=== PATIENT | male | born 1985 | race Caucasian/White ===

== ENCOUNTER → 2020-05-11 | Outpatient (CLI) | payer BC, OTHER ==
[~2020-05-11] MED LIST: ADVIL200 M1 PO; MULTI VITAMIN1 EACH PO; TYLENOL EXTRA500 MG PO
== END ==
LOC: RAD 12:51
DX: R29.890 Loss of height (principal)

== ENCOUNTER → 2020-06-02 | Outpatient (CLI) | payer BC, OTHER | LOC: EDSTATUS 13:22 → LAB 14:13 | PROVIDERS: ATTEND Student in an Organized Health Care Education/Training Program | DX: Z01.812 Encounter for preprocedural laboratory examination (principal); Z11.59 Encounter for screening for other viral diseases ==

== ENCOUNTER 2020-06-06 06:20 | Day surgery (SDC) | payer BC, OTHER ==
[2020-05-30 11:23] LABS: HEMATOCRIT 50.4 % (42.0-52.0); HEMOGLOBIN 17.2 gm/dL (14.0-18.0); MCH 32.2 pg (26.0-34.0); MCHC 34.2 g/dL (28.0-37.0); MCV 94.2 fL (80.0-100.0); PLATELET COUNT 262 thou/uL (150-400); RBC 5.35 mil/uL (4.50-6.00); RDW 12.9 % (10.5-14.5); WBC 8.1 thou/uL (4.0-11.0)
[2020-05-30 11:52] LABS: APTT 28.6 Seconds (24.5-32.8); PROTIME 10.1 Seconds (9.3-11.4)
[2020-05-30 11:56] LABS: URINE BILIRUBIN NEGATIVE (Negative); URINE BLOOD NEGATIVE (Negative); URINE CLARITY CLEAR; URINE COLOR YELLOW; URINE GLUCOSE-RANDOM* NEGATIVE (Negative); URINE KETONES NEGATIVE (Negative); URINE LEUKOCYTES-REFLEX NEGATIVE (Negative); URINE NITRITE-REFLEX NEGATIVE (Negative); URINE PROTEIN (DIPSTICK) NEGATIVE (Negative); URINE SPECIFIC GRAVITY >= 1.030 (1.005-1.035); URINE UROBILINOGEN 0.2 E.U./dl (0.2-1.0)
[2020-05-30 12:30] LABS: ALBUMIN 4.1 g/dL (3.4-5.0); CREATININE 0.8 mg/dL (0.7-1.3); TOTAL BILIRUBIN 0.4 mg/dL (0.2-1.0); TOTAL PROTEIN 8.1 g/dL (6.4-8.2)
[2020-05-30 15:06] LABS: ABSOLUTE NEUTROPHILS 2.5 thou/uL (1.4-8.2)
[2020-05-30 15:07] LABS: ANISOCYTOSIS 1+
--- NOTE | 2020-05-30 15:56 | EKG ---
[facility] [place] [address] ELECTROCARDIOGRAM REPORT Name: KEISHA BEASLEY Room #: PRE [facility] M..#: [id number] Admission: Attend Phys: Jack Wilkerson MD Discharge: Date of : 83 Report #: [id number] THIS REPORT FOR: cc: HIRA - Elvira family physician/PCP HIRA - Elvira family physician/PCP Henok King MD ~ THIS REPORT FOR: //name// [facility] Test Date: 2020-05-30 Test Time: 10:52:25 Pat Name: KEISHA BEASLEY Department: Room: Gender: Professor Of Psychology: [facility] : 1985 Requested By: Jack Wilkerson Order Number: [id number] MD: Henok King Measurements Intervals [place] Rate: 77 P: 43 NH: 143 QRS: 62 QRSD: 105 T: 51 QT: 377 QTc: 427 Interpretive Statements Sinus rhythm ST elev, probable normal early repol pattern No previous ECG available for comparison Electronically Signed On 05-30-2020 15:56:43 CDT by Henok King [email or web address] <ELECTRONICALLY SIGNED> By: Henok King MD 05/30/20 1556 1052 1052 Henok King MD /VIRGILIO
[~2020-06-06] VITALS: Ht 185.4 cm; Wt 147.4 kg
--- NOTE | ~2020-06-06 | O ---
[facility] [place] [address] OPERATIVE REPORT Name: KEISHA BEASLEY Room #: 433-I [facility] M..#: [id number] Admission: 06/06/20 Attend Phys: Jack Wilkerson MD Discharge: Date of : 83 Report #: [id number] THIS REPORT FOR: cc: HIRA - Elvira family physician/PCP HIRA - Elvira family physician/PCP Jack Wilkerson MD ~ CC: HIRA physician/PCP Jack Wilkerson DATE OF SERVICE: 06/06/2020 PREPROCEDURAL DIAGNOSES: Degenerative disk disease, herniated nucleus pulposus L5-S1, left S1 radiculopathy, osteodiscal complex and spinal stenosis. POSTPROCEDURAL DIAGNOSES: Degenerative disk disease, herniated nucleus pulposus L5-S1, left S1 radiculopathy, osteodiscal complex and spinal stenosis. PROCEDURE: The patient's procedure was originally to be herniated nucleus pulposus excision, but it turned out to be a laminectomy with partial facetectomy and neural foraminotomy on the left of L5, laminectomy with neural foraminotomy, partial facetectomy S1 on the left with an osteophyte excision beneath the rim of S1 nerve root and HNP excision and fluoroscopy. SURGEON: Jack Wilkerson MD CAD ADMINISTRATOR SURGEON: ____ ANESTHETIC: General via endotracheal tube. INDICATIONS: The patient has had left S1 radiculopathy. The patient proved refractory to all forms of multimodality conservative management. The patient understood the risks of surgery to be , DVT, pulmonary embolism, paraplegia, loss of use of the bowel or bladder, injury to the nerve root, dural leak, spinal headache, infection, loss of ability to ambulate, loss of bowel and bladder function, loss of sexual function, possibility of bleeding, bleeding requiring transfusion, ____ attendant risks of AIDS and hepatitis, infection, instability, the need for revision, prolonged hospital stay. DESCRIPTION OF PROCEDURE: The patient was brought to the operating room, administered general anesthesia via endotracheal tube. He was positioned on the Kervin table with all bony prominences padded appropriately. Care was taken to ensure the shoulder was not abducted more than 90 degrees, the elbows flexed more than 90 degrees. There was no undue pressure on the cubital or carpal canals. The area of the anterior superior iliac spine was well padded to protect the lateral femoral cutaneous nerve. Hips and knees were well padded. There was no pressure on the dorsum of the feet. The patient's low back was [address] [address] OPERATIVE REPORT Name: KEISHA BEASLEY Room #: 433-I [facility].#: [id number] Admission: 06/06/20 Attend Phys: Jack Wilkerson MD Discharge: Date of : 83 Report #: [id number] defatted with alcohol, visualized under fluoroscopy and the pedicles of L5 and S1 were marked on the patient's back for surgical reference. We then sterilely prepped and draped, infiltrated the skin with 0.5% Marcaine, 1:200,000 epinephrine. Sharp dissection was continued down through the skin and the subcutaneous tissues and again the fluoroscopy had marked the interspace and this required fluoroscopic exposure and interpretation. When centered over L5-S1, we were able to make the incision, carried it down through significant amounts of subcutaneous tissue. A complex ____ would be appropriate. It was approximately 8-9 inches from the skin to the deep fascial layer. We had to use the deep self-retaining retractors just to get down to the lumbodorsal fascia. We reached the lumbodorsal fascia and exposed just enough spinous process to prove that we were at the L5-S1 level. We then subperiosteally exposed the spinous process of L5 and S1 and again I attached a clamp to L5 and fluoroscopy was brought in for yet another fluoroscopic exposure that required surgeon interpretation and it was determined that we were at the L5 level. We cleared the L5-S1 interspace on the left and removed the fibrofatty tissue from the interlaminar space. Once the lamina of L5 and S1 was defined, we began by making a thinning laminotomy of the lamina of L5 and drilled to the anterior cortex. We then used a forward angle Luis Carlos curette to remove the ligamentum flavum from the undersurface of the lamina. We then were able to dissect laterally removing the ligamentum flavum after it had been detached from the cephalad portion of L5. With the ligament incised with a 15 blade cut over a [place] dental elevator, we then used the 3 mm Kerrison to resect additional ligamentum flavum. We eventually found the nerve root pushed far lateral beneath the contents of the L5-S1 disk. We were able with some difficulty to dissect the nerve root free from its lateral position and up over what seemed to be disk at the L5-S1 level. We incised the L5-S1 level and found almost the entire contents to be bone. Realizing that this was now a hard disk and it was as much or more bone than disk material, we had to extend the laminectomy of L5 cephalad to get good mobilization as the spur was enormous. We also had to dissect distally to free up the nerve root that looked contused from the start of the case. The nerve root was somewhat purplish. We then mobilized the nerve root, removed some disk material, but then realized the bulk of the impingement was caused by the osteophytic spur off the inferior aspect of L5. The Luis Carlos curette was used to dissect and tamp down this osteophytic spur that was then removed with a pituitary. When complete, the nerve root was free from its takeoff under the facet, which had been partially resected and neuroforaminotomy at both L5 and the S1 nerve root was accomplished just to ensure that it was completely mobilized and free. It was no longer tethered. There was no overlying ligament, tethering it to the spur beneath. Completely unencumbered its course. I then placed 2 mg of Decadron on Gelfoam and placed it over the nerve root. We then inspected for hemostasis after 1 liter irrigation with antibiotic solution and then closed the deep fascia with 0 Ethibond in gyzkup-iv-trhar interrupted fashion, deep subQ with 0 Vicryl, superficial subQ with 2-0 Vicryl, skin with subcuticular 3-0. Dressing with benzoin, Steri-Strips, Xeroform, and sterile dressing sponges and a bioclusive. The [address] [address] OPERATIVE REPORT Name: KEISHA BEASLEY Room #: 433-I [facility] M.R.#: [id number] Admission: 06/06/20 Attend Phys: Jack Wilkerson MD Discharge: Date of : 83 Report #: [id number] patient tolerated the procedure well. There were no technical misadventures. Nerve root was free in its entirety. It had been carefully dissected. No evidence of injury to the nerve root during the case. It was completely free and mobilized at the completion. By: 0945 1015 Jack Wilkerson MD /nt
[2020-06-06 07:58] VITALS: BP 170/93
[2020-06-06 11:30] VITALS: BP 121/71
--- NOTE | 2020-06-06 14:04 | NUR ---
Patient came to unit post-op. NEPHROLOGY NURSE pump set-up per order. Dressing c/d/i. Pt states doctor gave pain prescription but pharmacy will not fill because number of pills exceeds limit. record systems analyst states she will contact doctor to fix med prescription. Recovery was called, states they are waiting for doctors office to contact them. physical therapy will evaluate patient. Pt states he is going home as long as pain is controlled, can work with PT, and is able to void. Call light within reach. Family at bedside.
--- NOTE | 2020-06-06 14:25 | NUR ---
ASSESSMENT: CM REVIEWED CHART AND SPOKE WITH PATIENT. PT IS ALERT AND ORIENTED X4. PT REPORTS HE LIVES AT HOME WITH HIS . PT REPORTS NO HX OF HH IN THE PAST OR SNF. PT REPORTS HE IS FULLY INDEPENDENT WITH ADLS AND AMBULATION. PHYSICAL THERAPY MET WITH PT AND CLEARED HIM AND HE DOES NOT REQUIRE ANY EQUIPTMENT AT THIS TIME. PT DOES NOT ANTICIPATE HAVING ANY NEEDS FROM CM PRIOR TO DISCHARGE.
[2020-06-06 16:19] VITALS: BP 121/71
== END 2020-06-06 17:38 | disposition home or self-care (01) ==
LOC: TBA 06:20 → OR 06:20 → TBA 06:24 → OR 08:03 → 4S 11:37 → OR 12:56
DX: M51.16 Intervertebral disc disorders with radiculopathy, lumbar region (principal); M48.061 Spinal stenosis, lumbar region without neurogenic claudication; M25.78 Osteophyte, vertebrae; Z98.890 Other specified postprocedural states; Z79.899 Other long term (current) drug therapy; Z87.891 Personal history of nicotine dependence
CPT/HCPCS: 50010; 50101; 50402; 50850; 51878; 56524; 56528; 62110; 62900; 70005

== ENCOUNTER → 2020-06-21 | Outpatient (CLI) | payer BC, OTHER | LOC: RAD 08:57 | DX: M41.86 Other forms of scoliosis, lumbar region (principal); R29.890 Loss of height; Z98.890 Other specified postprocedural states ==